=== PATIENT | female | born 1975 | race Caucasian/White ===

== ENCOUNTER → 2022-10-03 09:55 | Outpatient (BNVA) | payer OTHER, SELFPAY | PROVIDERS: Family Provider Family Medicine; PCP Family Medicine; Visit Provider Family Medicine | DX: Z00.00 Encounter for general adult medical examination without abnormal findings (principal); R73.9 Hyperglycemia, unspecified; Z78.9 Other specified health status | CPT/HCPCS: 80053; 80061; 83036 ==

== ENCOUNTER → 2023-10-07 07:30 | Outpatient (BNVA) | payer OTHER, SELFPAY | PROVIDERS: Family Provider Family Medicine; PCP Family Medicine; Visit Provider Family Medicine | DX: I10 Essential (primary) hypertension (principal); R73.03 Prediabetes | CPT/HCPCS: 80053; 80061; 83036 ==

== ENCOUNTER → 2023-10-13 16:27 | Outpatient (BNVA) | payer OTHER, SELFPAY | PROVIDERS: Family Provider Family Medicine; PCP Family Medicine; Visit Provider Family Medicine | DX: Z78.9 Other specified health status (principal) | CPT/HCPCS: 87624 ==

== ENCOUNTER 2023-12-22 07:52 | Outpatient (CLI) | payer OTHER, SELFPAY ==
--- NOTE | 2023-12-22 08:00 | MM_ITS ---
WS: [email or web address] SCREENING DIGITAL BREAST TOMOSYNTHESIS MAMMOGRAM WITH CAD HISTORY: screening COMPARISON: None available. Bilateral CC and MLO with tomosynthesis and synthetic mammography submitted. Computer aided detection analyzed. Breast composition: There are scattered areas of fibroglandular density. There are 2 masses in the RI GHT breast which are very small. These are best seen on the CC projection towards the posterior breas t. 1 of these is in the lateral breast. The other is more centrally positioned. Location of each mass is difficult to determine due to their very small size. With additional imaging the position may be more obvious. LEFT breast is negative. MM/[place] [id number] IMPRESSION: BI-RADS: 0-Incomplete: Need additional imaging evaluation FOLLOW UP: Need Additional Imaging RIGHT breast: Spot compression views (CC and MLO). True ML. Ultrasound to follo w if abnormality persists.
== END 2023-12-22 07:53 | disposition home or self-care (01) ==
LOC: RAD 07:52
PROVIDERS: Family Provider Family Medicine; PCP Family Medicine; Visit Provider Family Medicine
DX: Z12.31 Encounter for screening mammogram for malignant neoplasm of breast (principal); R92.323 Mammographic fibroglandular density, bilateral breasts
CPT/HCPCS: 77063; 77067

== ENCOUNTER 2024-01-19 09:13 | Outpatient (CLI) | payer OTHER, SELFPAY ==
--- NOTE | 2024-01-19 09:30 | MM_ITS ---
WS: [email or web address] ADDITIONAL VIEWS RIGHT MAMMOGRAM WITH DIGITAL BREAST TOMOSYNTHESIS. RIGHT BREAST ULTRASOUND HISTORY: Breast mass. COMPARISON: 12/22/2023 RIGHT MAMMOGRAM: Spot compression views and true ML with digital breast tomosynthesis and SM. Only a single mass persists. This mass is just lateral and inferior to the nipple line in a mid to po sterior depth measuring 5 mm. This may be a small benign lymph node. No additional abnormalities dete cted. Ultrasound to follow. RIGHT BREAST ULTRASOUND 2-D and color Doppler imaging submitted. No abnormality is noted by ultrasound in the RIGHT breast from 5-8 o'clock. This may be a small benig n lymph node that blends in with the adjacent soft tissue which is of similar echogenicity. There is no solid mass or shadowing. MM/[place] [id number] IMPRESSION: BI-RADS: 3-Probably Benign FOLLOW UP: 6 Month Follow-up Recommend diagnostic mammogram follow-up in 6 months of the RIGHT breast. Ultra sound may be necessary if this mass increases in size. This is a very small mas s and may be a benign lymph node. No identifiable abnormality by ultrasound.
--- NOTE | 2024-01-19 10:28 | US_ITS ---
WS: [email or web address] ADDITIONAL VIEWS RIGHT MAMMOGRAM WITH DIGITAL BREAST TOMOSYNTHESIS. RIGHT BREAST ULTRASOUND HISTORY: Breast mass. COMPARISON: 12/22/2023 RIGHT MAMMOGRAM: Spot compression views and true ML with digital breast tomosynthesis and SM. Only a single mass persists. This mass is just lateral and inferior to the nipple line in a mid to po sterior depth measuring 5 mm. This may be a small benign lymph node. No additional abnormalities dete cted. Ultrasound to follow. RIGHT BREAST ULTRASOUND 2-D and color Doppler imaging submitted. No abnormality is noted by ultrasound in the RIGHT breast from 5-8 o'clock. This may be a small benig n lymph node that blends in with the adjacent soft tissue which is of similar echogenicity. There is no solid mass or shadowing. US/US breast RT limited* [id number] IMPRESSION: BI-RADS: 3-Probably Benign FOLLOW UP: 6 Month Follow-up Recommend diagnostic mammogram follow-up in 6 months of the RIGHT breast. Ultra sound may be necessary if this mass increases in size. This is a very small mas s and may be a benign lymph node. No identifiable abnormality by ultrasound.
== END 2024-01-19 09:14 | disposition home or self-care (01) ==
LOC: RAD 09:14
PROVIDERS: PCP Family Medicine; Visit Provider Family Medicine
DX: N63.15 Unspecified lump in the right breast, overlapping quadrants (principal)
CPT/HCPCS: 76642; 77061; G0279

== ENCOUNTER 2024-08-24 08:43 | Outpatient (CLI) | payer OTHER, SELFPAY ==
--- NOTE | 2024-08-24 09:00 | MM_ITS ---
WS: [email or web address] DIAGNOSTIC RIGHT DIGITAL TOMOSYNTHESIS MAMMOGRAPHY WITH CAD. HISTORY: R92.8 - Other abnormal and inconclusive findings on diagn... COMPARISON: 01/19/2024, 12/22/2023 Technique: CC, MLO and ML views. Spot compression RIGHT CC. Breast composition: There are scattered areas of fibroglandular density. No persistent asymmetries. No masses or nodules. The previously described very subtle asymmetries are not identified today. There is no distortion or calcification. MM/MM diag RT tomosynthesis [id number] IMPRESSION: BI-RADS: 2 - Benign. FOLLOW UP: 1 Year Follow-up Return to annual screening mammography.
== END 2024-08-24 08:44 | disposition home or self-care (01) ==
LOC: RAD 08:46
PROVIDERS: PCP Family Medicine; Visit Provider Family Medicine
DX: R92.8 Other abnormal and inconclusive findings on diagnostic imaging of breast (principal); R92.321 Mammographic fibroglandular density, right breast
CPT/HCPCS: 77061; G0279

== ENCOUNTER → 2025-06-24 07:45 | Outpatient (BNVA) | payer OTHER, SELFPAY | PROVIDERS: PCP Family Medicine; Visit Provider Family Medicine | DX: Z00.00 Encounter for general adult medical examination without abnormal findings (principal); R73.9 Hyperglycemia, unspecified | CPT/HCPCS: 80053; 80061; 83036 ==